=== PATIENT | female | born 2000 | race Two or more races ===

== ENCOUNTER 2025-08-05 10:00 | Day surgery (SDC) | payer MEDICAID, SELFPAY ==
[2025-08-01 12:48] VITALS: BMI 33.3
[2025-08-01 12:54] VITALS: BMI 33.3
[2025-08-01 13:24] LABS: Basophils # (Auto) 0.0 Thou/mm3 (0.0-0.2); Basophils % (Auto) 0 % (0-2.5); Eosinophils # (Auto) 0.3 Thou/mm3 (0.0-0.5); Eosinophils % (Auto) 2 % (0-10); Hematocrit 41.9 % (36.0-46.0); Hemoglobin 14.1 g/dL (12.0-16.0); Immature Granulocytes Auto 0.07 Thou/mm3 (0.00-0.00); Lymphocytes # (Auto) 3.0 Thou/mm3 (1.0-4.8); Lymphocytes % (Auto) 24 % (10-50); Mean Corpuscular HGB Conc 33.7 g/dl (31.0-37.0); Mean Corpuscular Hemoglobin 29.8 pg (25.0-35.0); Mean Corpuscular Volume 89 fL (80-100); Monocytes # (Auto) 0.7 Thou/mm3 (0.0-0.8); Monocytes % (Auto) 5 % (0-12); Neutrophils # (Auto) 8.8 Thou/mm3 (1.8-7.7); Neutrophils % (Auto) 69 % (37-80); Nucleated Red Blood Cell # 0.00 Thou/mm3 (0.00-0.00); Nucleated Red Blood Cell % 0 /100 WBC (0); Platelet Count 332 Thou/mm3 (140-440); RDW Standard Deviation 43.3 fL (36.4-46.3); Red Blood Count 4.73 Miln/mm3 (4.00-5.20); White Blood Count 12.8 Thou/mm3 (3.6-11.0)
[2025-08-01 13:39] LABS: INR 1.0 (0.9-1.3); Partial Thromboplastin Time 30.7 Seconds (22.0-36.0); Prothrombin Time 10.3 Seconds (9.0-12.2)
[2025-08-01 13:46] LABS: Alanine Aminotransferase 11 U/L (10-49); Albumin, Serum 5.0 gm/dL (3.5-5.0); Albumin/Globulin Ratio 2.2 (1.2-2.2); Alkaline Phosphatase 142 U/L (46-116); Anion Gap 9 (7-16); Aspartate Amino Transferase 16 U/L (0-34); BUN/Creatinine Ratio 15 Ratio (12-20); Bilirubin,Total 0.4 mg/dL (0.3-1.2); Blood Urea Nitrogen 12 mg/dL (9-23); Calcium 9.3 mg/dL (8.3-10.6); Calcium (Corrected) 9.3 mg/dL (8.5-10.1); Carbon Dioxide 25.9 mMol/L (20.0-31.0); Chloride 107 mMol/L (98-107); Creatinine (Component) 0.8 mg/dL (0.6-1.3); Estimated Creatinine Clearance 106.3 mL/min (>60); Globulin 2.3 gm/dL (2.3-3.5); Glucose 96 mg/dL (74-106); Osmolality,Calculated 282 (275-295); Potassium 3.8 mMol/L (3.4-5.1); Sodium 142 mMol/L (136-145); Total Protein 7.3 gm/dL (5.7-8.2); eGFR > 60 See Note
[2025-08-01 13:47] LABS: HCG,Qualitative Serum Negative
--- NOTE | 2025-08-04 15:09 | SUR.PREOP ---
Pt notified to come in at 1000 tomorrow for surgery.
[2025-08-05] VITALS (9 sets, daily range): BP systolic 119–137; BP diastolic 62–88; PULSE 75–100; RESP 15–20; TEMP 36.2–36.7; O2SAT 96–100; BMI 33.0
--- NOTE | 2025-08-05 10:29 | SUR.PREOP ---
Patient expressed gratitude for prayer before their procedure.
--- NOTE | 2025-08-05 14:10 | SUR.PHASEI ---
1410: Pt. AAOx4, vitals stable, breathing unlabored, no complaint of pain or nausea, dressing to rectum CDI, no active bleed noted, report received from MD Beltran and Jeannie MARY.
--- NOTE | 2025-08-05 14:29 | PD.SUROPNT ---
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 She was placed in prone position with jackknife of the table. Her buttocks were taped apart. Timeout is performed. Patient received 2 g of Ancef because of infected fistula. Then I probed the fistulous opening and found out that it entered below the PEG tube dentate line in the anal canal. At the skin level there were 2 openings but there is only 1 fistulous tract going inside. I removed all the scar tissue and granulation tissue surrounding the probe. Some external sphincter muscle was divided in the process. The bleeding points were suture-ligated with 3-0 chromic. After removing all the debris wound was packed with Surgicel and 4 x 4 gauze. There was another opening on the right buttock but that was not showing any drainage until I left it alone. Patient tolerated procedure well and returned to recovery room in stable condition. Anesthesia GETA Pathology / specimen Other (The excised fistula) Estimated Blood Loss 50 Surgeon Raj Fragoso MD Surgical Staff Operation Date: 08/05/25 12:45 Case Staff Anesthesiologist: Codey Beltran RN First Assistant: Michael Olson
--- NOTE | 2025-08-05 15:35 | SUR.PHASEII ---
1535: Pt. AAOx4, vitals stable, breathing unlabored, no complaint of pain or nausea, dressing to rectum CDI, no active bleed noted, pt. tolerated sips of water well, pt. ambulated to wheelchair with steady gait and no assist, no complications. Gave discharge instructions to the pt. and her ride using a industrial radiographer, both verbalized understanding and had no further questions. Pt. left with all personal belongings.
== END 2025-08-05 15:35 | disposition home or self-care (01) ==
PROVIDERS: Anesthesiology; PCP Family Medicine; Referring Provider Surgery; Visit Provider Surgery
PROC: (CPT 46280; principal; 2025-08-05 12:30)
DX: K60.30 Anal fistula, unspecified (principal); E66.9 Obesity, unspecified; Z68.33 Body mass index [BMI] 33.0-33.9, adult
CPT/HCPCS: 46280; 36415; 80053; 84703; 85025; 85610; 85730; A4649; C1876; J0131; J0690; J1100; J1885; J2250; J2405; J2704; J3010; J3490